=== PATIENT | male | born 1940 | race Caucasian/White ===

== ENCOUNTER 2024-11-19 22:15 | Inpatient (IN) | payer MEDICARE, SELFPAY ==
[2024-11-19 15:30] VITALS: BP 158/73
[2024-11-19] MEDS: TYLENOL 975 MG PO (15:39)
[2024-11-19 16:01] LABS: % Basophils 0.2 % (0-2); % Eosinophils 0.1 % (0-6); % Immature Granulocytes 1.7 % (0-0.5); % Lymphocytes 10.5 % (20.5-51.1); % Monocytes 8.6 % (1.7-9.3); % Neutrophils 78.9 % (42.2-75.2); Absolute Immature Granulocytes 0.2 10^3/uL (0-0.05); Absolute Lymphocytes 0.9 10^3/uL (1.2-3.4); Absolute Monocytes 0.8 10^3/uL (0.1-0.6); Hematocrit 35.9 % (39.0-52.0); Hemoglobin 11.7 g/dL (13.0-18.0); Mean Corp Hgb Conc. 32.6 g/dL (33.0-37.0); Mean Corpuscular Hgb 27.3 pg (27.0-31.0); Mean Corpuscular Volume 83.9 fL (80.0-94.0); Mean Platelet Volume 9.8 fL (7.4-10.4); Nucleated Red Blood Cells % 0 % (-); Platelet Count 145 10^3/uL (130-400); Red Blood Cell Count 4.28 10^6/uL (4.70-6.10); Red Cell Dist. Width 13.2 % (11.5-14.5); White Blood Cell Count 8.8 10^3/uL (4.8-10.8)
[2024-11-19 16:18] LABS: ALT (SGPT) 19 U/L (0-50); AST (SGOT) 29 U/L (17-59); Albumin 4.2 g/dl (3.5-5.0); Alkaline Phosphatase 131 U/L (38-126); Blood Urea Nitrogen 14 mg/dl (9-20); Calcium 8.9 mg/dl (8.4-10.2); Carbon Dioxide 25 mmol/L (22-30); Chloride 97 mmol/L (98-107); Glucose 184 mg/dl (70-99); Potassium 4.5 mmol/L (3.5-5.1); Sodium 132 mmol/L (135-145); Total Bilirubin 0.2 mg/dl (0.2-1.3); Total Protein 6.8 g/dl (6.3-8.2); eGFR > 60.00
[2024-11-19 16:44] LABS: COVID-19 Antigen Negative (Negative)
[2024-11-19 18:25] VITALS: BP 162/69
--- NOTE | 2024-11-19 18:48 | ED.GENMED ---
History of Present Illness
General
Chief Complaint: Fall
Source: patient and family (Daughter)
Exam Limitations: none
Time Seen by Provider: 11/19/24 18:33
History of Present Illness
History of Present Illness:
This is a 84 year old male that comes in with c/o fall. Daughter states that he has had cold symptoms since Sunday. Today patent was trying to get out of his Recliner and he had a blanket over him. States that he lost his balance and fell. States
that he did not hit his head. Denies any LOC. States that he has a fever with some dizziness. Denies any chills, chest pain, SOB, abd pain, nausea, vomiting, diarrhea, headache, urinary burning.
Past History
Past History
ED Past Medical History: HTN and IDDM (Patient has an insulin pump)
ED Past Surgical History: Other (Bilateral leg bypass)
Social History
Tobacco: Former smoker
Alcohol: None
Personal:
Living: with family
Review of Systems
Review of Systems
All Other Systems: ROS reviewed and negative except as documented in HPI and ROS
Constitutional: Reports fever; Denies chills
EENT: Reports no symptoms
Respiratory: Reports cough; Denies trouble breathing
Cardiac: Reports no symptoms; Denies chest pain
ABD/GI: Denies abdominal pain, nausea, vomiting or diarrhea
: Reports no symptoms; Denies dysuria, frequency or urgency
Musculoskeletal: Reports no symptoms
Skin: Reports no symptoms
Neurological: Reports dizzy; Denies headache
Psychiatric: Reports no symptoms
Phy Exam
General Physical Exam
General Presentation: no apparent distress
General age: appears stated age
General Skin: warm and dry
General Habitus: elderly
General Mental: alert
General Hydration: appears well hydrated
ENT Exam
ENT Exam: TM's normal, pharynx normal and neck supple
Eye Exam
Eye Exam: EOMI
Cardiovascular Exam
Cardiovascular Exam: regular rate/rhythm and normal peripheral pulses
Pulmonary Exam
Pulmonary Exam: no rales, no crackles, no rhonchi and other (Insp and exp wheezing throughout, Cough noted)
Gastrointestinal Exam
Gastrointestinal Exam: normal bowel sounds, non tender, soft, no organomegaly, no pulsatile mass and non distended
Musculoskeletal Exam
Musculoskeletal Exam: full ROM and other (Large right lateral knee lump. Most likely a hematoma)
Skin Exam
Skin Exam: normal color, warm/dry and no petechia
Psychiatric Exam
Psychiatric Exam: normal mood/affect
Course
Orders/Labs/Results
Orders:
Orders
11/19/24 15:34
Electrocardiogram (*1) Urgent
Reason for Study: Other
Other Reason for Exam: Possible Sepsis
11/19/24 15:35
EKG- Treatment ONCE
11/19/24 15:36
CR Knee- Right 4 Or More View* Urgent
Comment:
Reason For Exam: pain
Chest [CR Chest - 2 Views ] Urgent
Comment:
Reason For Exam: cough/fever
11/19/24 15:38
Acetaminophen [Tylenol] 975 mg .ROUTE .STK-MED ONE
11/19/24 15:39
Acetaminophen [Tylenol] 975 mg PO NOW STA
11/19/24 15:52
COVID-19 Antigen Urgent
Source: Nasal Swab
Complete Blood Count/With Diff Urgent
Comprehensive Metabolic Panel Urgent
Influenza A+B Rapid Molecular Urgent
ADITYA Source: Nasal Swab
Specimen Description:
11/19/24 18:47
0.9% Sodium Chloride 500 ml [Nss] 500 ml IV BOLUS
Ipratropium/Albuterol Sulfate [Duoneb] 3 ml INH R NOW ONE
11/19/24 18:[address] Non Medication Order As Directed
Physician Order: after fluids and duo. please walk patient and recheck Oxygen saturation
Above order entered?: Yes
11/19/24 18:56
US Legs, Right [US Periph Venous LOWER Ext RT] Urgent
Comment:
Reason For Exam: Large palpable lump lateral distal knee area.
11/19/24 19:07
Troponin I Urgent
11/19/24 20:23
Dexamethasone Sod Phosphate [Decadron] 20 mg IV NOW STA
11/19/24 21:37
Admit/Transfer Patient As Directed
Co-Sign Provider:
Level of Care: Inpatient admission
Assign to:: Medical/Surgical
Physician / Group: Jose F
Diagnosis: Influenza A, Hypoxemic Respiratory Insufficiency
Reason for Hospitalization: Influenza A, Hypoxemic Respiratory Insufficiency
Expected length of stay greater than two midnights?: Yes
ELOS- Estimated Length of Stay in days: 2
I certify the patient meets the requirements for IP care: Yes
PRN Pain Medication Management As Directed
May give lesser potent ordered pain med per pt: Yes
preference::
Protocol:: Medication orders for pain may be administered in a
manner that supports deferring to patient preference
when the pt is:
- Requesting an ordered lesser potent pain medication.
Least to most potent pain medications are defined
as: acetaminophen < NSAID < tramadol < opioids
(morphine, oxycodone, hydromorphone).
- Requesting a lesser dose of the same medication IF
ORDERED.
- Requesting a less intrusive route of administration
if both routes are prescribed by the provider (PO <
IV).
11/19/24 21:39
Code Status As Directed
Resuscitation Status: Do not resuscitate
Reached after discussion with pt or family/Healthcare POA: Yes
11/19/24 21:40
DNR Bracelet Application ONCE
11/19/24 21:48
Oseltamivir Phosphate [Tamiflu] 75 mg PO NOW STA
11/19/24 22:00
Flush (0.9% Sodium Chloride) [Flush (Nss)] See Dose Instructions IV PER PROTOCOL
11/19/24 22:18
0.9% Sodium Chloride 1000 ml [Nss] 1,000 ml IV 100 mls/hr
Acetaminophen [Tylenol] 650 mg PO Q4HPRN PRN
Albuterol [ProAIR HFA INHALER] 2 puff INH R Q4HPRN PRN
Dextrose 50%-Water [Dextrose 50% Syringe] 12.5 grams IV [id number] PRN
Glucagon [GlucaGen] 1 mg IM PRN PRN
Pravastatin Sodium [Pravachol] 80 mg PO HS
11/19/24 22:18
WOUND/OSTOMY CONSULT Routine
Reason for Consult: RLE Hematoma
Activity As Directed
Activity Level: Ambulate
With Assistance
Bedside Glucose Monitoring As Directed
Frequency: AC&HS
Additional Instructions:: Change to q6h if pt on TPN, tube feeding or not eating
Bladder Scan As Directed
Follow Bladder Retention/Intermittent Cath Algorithm?: Yes
PRN if no void in __ hours: 6
Frequency: Per Retention Algorithm
If Bladder Scan Result >: 400
then:: Straight cath
I/O [Intake/ Output] As Directed
Frequency: Per unit guidelines
Orthostatic Vital Signs As Directed
Orthostatic VS Frequency: BID
Pneumatic Compression Sleeves As Directed
Type: Knee high
Precautions As Directed
Type of Precautions: Droplet
Straight Cath As Directed
Frequency: Per Retention Algorithm
Additional Instructions: straight cath as needed per acute urinary retention algorithm for 24 hrs
Additional Instructions: for bladder scan greater than 400 mL
Vital Signs As Directed
Frequency: Per unit guidelines
Weight As Directed
Frequency: Daily
Oxygen Therapy [O2 Therapy] [RESP] Routine
Titrate/Wean O2 to maintain O2 sat greater than (%): 94
Ot Eval And Treat Routine
PT Consult [Pt Eval And Treat] Routine
Activity Level: Ambulate
With Assistance
DX Deep Vein Thrombosis Video Routine
11/20/24 Breakfast
2000 calorie (17 carb) Diabetic
Basic Metabolic Panel IN AM
Complete Blood Count/No Diff IN AM
Glycohemoglobin (HgbA1c) IN AM
11/20/24 07:30
Insulin Pump [Patient's Own Insulin Pump] See Dose Instructions SC ACHS
11/20/24 08:00
Allopurinol [Zyloprim] 100 mg PO DAILY
Amlodipine [Norvasc] 5 mg PO DAILY
Aspirin Chewable [Low Strength Aspirin] 81 mg PO DAILY
Atenolol [Tenormin] 50 mg PO DAILY
Cilostazol [Pletal] 100 mg PO BID
Guaifenesin [Mucinex] 600 mg PO Q12
Lisinopril [Zestril] 20 mg PO DAILY
Oseltamivir Phosphate [Tamiflu] 75 mg PO BID
Sitagliptin Phosphate [Januvia] 100 mg PO DAILY
11/20/24 22:00
Latanoprost [Xalatan Ophthalmic Solution] See Dose Instructions LEFT EYE HS
Abnormal Lab Results
11/19/24
15:52
RBC 4.28 L 10^6/uL
(4.70-6.10)
Hgb 11.7 L g/dL
(13.0-18.0)
Hct 35.9 L %
(39.0-52.0)
MCHC 32.6 L g/dL
(33.0-37.0)
Abs Immat Gran (auto) 0.2 H 10^3/uL
(0-0.05)
Absolute Neuts (auto) 7.0 H 10^3/uL
(1.4-6.5)
Absolute Lymphs (auto) 0.9 L 10^3/uL
(1.2-3.4)
Absolute Monos (auto) 0.8 H 10^3/uL
(0.1-0.6)
Immature Gran % 1.7 H %
(0-0.5)
Neutrophils % 78.9 H %
(42.2-75.2)
Lymphocytes % 10.5 L %
(20.5-51.1)
Sodium 132 L mmol/L
(135-145)
Chloride 97 L mmol/L
(98-107)
Glucose 184 H mg/dl
(70-99)
Alkaline Phosphatase 131 H U/L
(38-126)
11/19/24 15:52
11/19/24 15:52
H/H slightly low. Sodium slightly low. Hyperglycemia. Alk phos elevation. COVID negative. Influenza A positive,
Vital Signs
Initial and Last Documented VS:
Initial Vital Signs
Temp Pulse Resp BP Pulse Ox
102.1 F H 92 16 158/73 94
11/19/24 15:30 11/19/24 15:30 11/19/24 15:30 11/19/24 15:30 11/19/24 15:30
Last Documented Vital Signs
Temp Pulse Resp BP Pulse Ox
99.7 F 100 20 143/59 94
11/19/24 18:25 11/19/24 20:28 11/19/24 22:13 11/19/24 21:41 11/19/24 22:13
MDM/Problems Addressed
Differential Diagnosis Includes:
accidental fall, Influenza, COVID, PNA
MDM/Problems Addressed:
This is a 84 year old male that comes in with c/o fall. States that he has had cold like symptoms since Sunday. States that he was trying to get out of his recliner and he fell. States that he lost his balance.
Will check labs, chest x-ray. X-ray knee, US large palpable lump on right lower leg. Duo neb and then walk patient to check his Oxygen level .
Back into see patient. Patient continues with wheezing and is hypoxic at 85%. Will place on 02 and admit. Will also give Steroids as blood sugar can be treated. Hospitalist notified.
Chronic conditions affecting care: DM
Acute Exacerbation and/or Progression of Chronic Illness:
NA
*Radiology
Radiology exam reviewed: radiology read reviewed (Chest-No definite acute cardiopulmonary process. Prominent bronchovascular markings, felt related to dimished inspiration and accentuation of chest wall soft tissues. Knee=No radiographically
demonstrable acute fracture. Normal variant bipartite patella. Medial compartment arthritis. ) and other (US- No evidence of right lwoer extremity DVT, Palpable mass corresponds to a nonvascular complex fluid collection, most consistent with a
hematoma. )
*Pulse Oximetry
Patient hypoxic: no
*EKG
Interpreted by ED Provider?: Yes
Heart Rate: 102
Rate: tachycardiac
Rhythm: sinus
[place]: left axis deviation
Interval: normal interval
QRS Pattern: normal QRS
Ischemia: no ischemia
*[employer] Interpretation
Rate: tachycardiac
Heart Rate: 102
Rhythm: sinus tachycardia
*Critical Care Note
Total Time (30-74mins, 75-104mins- exclusive of procedures): Not Applicable
ED Attending Note
-
Portions of this chart may have been created with voice recognition software.� Occasional wrong word or��sound alike� substitutions may have occurred due to the inherent limitations of voice recognition software.
Discharge Plan
Departure
Patient Disposition: Admit
Date of Disposition: 11/19/24
Time of Disposition: 20:25
Admit to: Telemetry
Presentation/result/management discussed w/ accepting MD/DO: Hospitalist
Patient with high blood pressure during this ER visit?: Yes
Condition: Good
Covid-19: Not Applicable
Discharge Problem:
Influenza A, Bilateral wheezing, Hypoxia
Interventions
Interventions:
*Risk Screen - Suicide Last Done: 11/19/24 15:30
*General Assessment Last Done: 11/19/24 21:43
*Neglect/Abuse Screening Last Done: 11/19/24 15:30
ED- Fall Risk Assessment Last Done: 11/19/24 18:26
*ED COVID-19 Vaccine History Last Done: 11/19/24 21:43
ED-Musculoskeletal Assessment Last Done: 11/19/24 18:26
ED- Neurological Assessment Last Done: 11/19/24 18:26
ED-Skin Assessment Last Done: 11/19/24 18:26
[2024-11-19] MEDS: NSS 500 IV (18:57)
[2024-11-19] MEDS: DUONEB 3 ML INH (18:57)
[2024-11-19 19:38] LABS: Troponin I 0.019 ng/ml
[2024-11-19 20:28] VITALS: BP 159/59
--- NOTE | 2024-11-19 20:42 | PHANOTE ---
[email or web address](11/19/24)-Spoke with daughter Lilo, ambulance crew took her medication list, will call her when she gets home to confirm medication list from [facility] so she can reference the home medication list.
[2024-11-19] MEDS: DECADRON 20 MG IV (21:15)
[2024-11-19 21:41] VITALS: BP 143/59
--- NOTE | 2024-11-19 21:41 | HPS.HSE ---
Family Physician
-
Family Physician: Maribell Milian
Chief Complaint
-
Fall, Weakness
History of Present Illness
Patient is an 84y M with PMH significant for ASCVD / PAD, HTN and DM-II who presents to ED complaining of fall at home. Patient states that he developed 'cold symptoms' on Sunday of this week including runny nose, cough productive of green
mucus, weakness and fatigue. No fevers or chills. No GI or complaints. No known sick contacts. Patient did receive his influenza vaccine this season. This afternoon, patient stood from his chair and his legs felt weak. He fell backwards,
landing on a nearby coffee table. He denies striking his head, loss of consciousness, etc.
He suffered small skin tear to the L forearm and a lump / bruise on the R lower leg. He otherwise denies any current complaints or other injuries. Patient was transported to the ED for evaluation and was noted to be hypoxemic at 85% on room air.
He tested positive for influenza A.
Medical History
Past Medical History
Past Medical History: Reports Other
Additional Past Medical History:
ASCVD / PAD
AAA
Hypertension
DM-II
Gout
Nephrolithiasis
Colon Cancer
Obesity
Past Surgical History: Reports Other
Additional Past Surgical History:
Left Ax-Fem Bypass
Fem-Fem Bypass
Aortoiliac Repair / Endovascular Stent
Hemicolectomy
Right Inguinal Herniorrhaphy
Cataracts
Social History
Tobacco: Former Smoker (Quit 40 years ago. Approx 30 pack years total use.)
Alcohol: Occasional (Very rare.)
Drug: None
Living: With Family
Family History
Family History: Not pertinent
Allergies / Home Medications
Allergies reflects when Allergies were last updated in [employer].
Home Medications with original date entered in [employer]
Allergy/Medication List:
Allergies
Allergy/AdvReac Type Severity Reaction Status Date / Time
No Known Allergies Allergy Unverified 11/19/24 15:29
Home Medications
Patient's Own Insulin Pump 0 sliding scale dose SC AC 11/19/24
allopurinol 100 mg tablet 100 mg PO DAILY 11/19/24
alogliptin 25 mg tablet 25 mg PO DAILY 11/19/24
amlodipine 5 mg tablet 5 mg PO DAILY 11/19/24
aspirin 81 mg chewable tablet 81 mg PO DAILY 11/19/24
atenolol 50 mg tablet 50 mg PO DAILY 11/19/24
cilostazol 100 mg tablet 100 mg PO BID 11/19/24
latanoprost (PF) 0.005 % eye drops in a dropperette 1 drp LEFT EYE HS 11/19/24
lisinopril 20 mg tablet 20 mg PO DAILY 11/19/24
metformin 1,000 mg tablet 1,000 mg PO BID 11/19/24
pravastatin 40 mg tablet 80 mg PO HS 11/19/24
therapeutic multivitamin 1 tab PO DAILY 11/19/24
Review of Systems
-
History Source: Patient
A 12 point ROS was completed and negative except as noted: Yes
Constitutional: Reports Fatigue; Denies Fever or Chills
EENT: Reports Runny Nose; Denies Sore Throat
Respiratory: Reports Cough; Denies Hemoptysis or Trouble Breathing
Cardiac: Denies Chest Pain, Palpitations or Syncope
Abdomen/GI: Denies Abdominal Pain, Nausea, Vomiting or Diarrhea
: Denies Dysuria, Frequency or Flank Pain
Musculoskeletal: Denies Joint Pain or Edema
Neurological: Reports Weakness; Denies Dizzy or Headache
Psych: Denies Depression or Anxiety
Physical Exam
Vital Signs
Vital Signs
Temp Pulse Resp BP Pulse Ox
99.7 F 100 19 159/59 96
11/19/24 18:25 11/19/24 20:28 11/19/24 20:28 11/19/24 20:28 11/19/24 20:28
Physical Exam
General: Other (84y M in no acute distress.)
HEENT: Moist mucous membranes and PERRLA
Respiratory: Other (Few scattered coarse breath sounds. Faint expiratory wheezing.)
Cardiac: S1/S2 and Regular Rhythm; No Murmur
GI: Soft, Non Tender, Non Distended and Normal Bowel Sounds
Musculoskeletal: No Clubbing, No Cyanosis, No Edema and Other (Hematoma R lateral knee / proximal lower leg with surrounding ecchymosis. No skin breakdown. Small skin tear L forearm with dressing in place.)
Neuro: AO x 3
Laboratory Results
-
11/19/24 15:52
11/19/24 15:52
Laboratory Results
Total Bilirubin 0.2 mg/dl (0.2-1.3) 11/19/24 15:52
AST 29 U/L (17-59) 11/19/24 15:52
ALT 19 U/L (0-50) 11/19/24 15:52
Alkaline Phosphatase 131 U/L (38-126) H 11/19/24 15:52
Troponin I 0.019 ng/ml 11/19/24 19:07
Impression/Plan
-
A/P: Patient is an 84y M with PMH significant for ASCVD, HTN and DM-II who presents to ED for evaluation after fall at home. Recent cold / flu symptoms.
Influenza A
Acute Hypoxemic Respiratory Insufficiency secondary to the above
- Admit for further evaluation and treatment.
- Symptom onset 3 days ago.
- Begin Tamiflu therapy.
- Supportive care including O2 supplementation, albuterol MDI, etc.
- Follow proper precautions.
- Monitor for improvement in symptoms.
Fall at Home
Generalized Weakness
- Likely secondary to acute illness as noted above.
- PT / OT evaluations.
RLE Hematoma
LUE Skin Tear
- Continue local care. US done in the ED confirms hematoma of the R LE.
- Not on any anticoagulants.
- Follow for gradual improvement.
ASCVD
- s/p multiple bypass procedures, AAA repair, etc.
- No prior coronary disease, stroke, etc.
- Continue current med regimen including ASA, cilostazol, etc.
Benign Hypertension
- Stable. Continue home regimen with holding parameters.
DM-II
- Stable. Continue home insulin pump.
- Follow glucose and cover with SSI from own pump as per usual.
- Update A1C.
DVT Prophylaxis: SCDs
Code Status: DNR
[2024-11-19 22:00] VITALS: BP 119/58
[2024-11-19] MEDS: TAMIFLU 75 MG PO (22:10)
[2024-11-19 22:23] VITALS: BMI 33.6
[2024-11-19] MEDS: PRAVACHOL 80 MG PO (23:45)
[2024-11-20] VITALS (10 sets, daily range): BP systolic 92–142; BP diastolic 61–79; PULSE 73–79; O2SAT 94; BMI 32.4; BMI 33.0
[2024-11-20] MEDS: NSS 1000 IV ×3 (02:00→23:57)
[2024-11-20 05:33] LABS: Hematocrit 38.4 % (39.0-52.0); Hemoglobin 12.2 g/dL (13.0-18.0); Mean Corp Hgb Conc. 31.8 g/dL (33.0-37.0); Mean Corpuscular Hgb 27.2 pg (27.0-31.0); Mean Corpuscular Volume 85.5 fL (80.0-94.0); Mean Platelet Volume 9.7 fL (7.4-10.4); Platelet Count 148 10^3/uL (130-400); Red Blood Cell Count 4.49 10^6/uL (4.70-6.10); Red Cell Dist. Width 13.3 % (11.5-14.5); White Blood Cell Count 6.5 10^3/uL (4.8-10.8)
[2024-11-20 05:58] LABS: Blood Urea Nitrogen 17 mg/dl (9-20); Calcium 8.7 mg/dl (8.4-10.2); Carbon Dioxide 27 mmol/L (22-30); Chloride 101 mmol/L (98-107); Estimated Creatinine Clearance 57 ml/min; Glucose 170 mg/dl (70-99); Potassium 4.7 mmol/L (3.5-5.1); Sodium 137 mmol/L (135-145); eGFR > 60.00
[2024-11-20] MEDS: MUCINEX 600 MG PO ×2 (08:12→20:23)
[2024-11-20] MEDS: ZESTRIL 20 MG PO (08:12)
[2024-11-20] MEDS: LOW STRENGTH ASPIRIN 81 MG PO (08:12)
[2024-11-20] MEDS: TAMIFLU 75 MG PO ×2 (08:12→20:23)
[2024-11-20] MEDS: ZYLOPRIM 100 MG PO (08:13)
[2024-11-20] MEDS: TENORMIN 50 MG PO (08:13)
[2024-11-20] MEDS: NORVASC 5 MG PO (08:13)
[2024-11-20 08:22] LABS: Glucose - Point of Care 182 mg/dl (70-99)
[2024-11-20 08:51] LABS: Glycohemoglobin (HgbA1c) 7.5 % (4.0-5.6)
[2024-11-20] MEDS: PATIENT'S OWN INSULIN PUMP 5 UNITS SC (10:42)
[2024-11-20] MEDS: PLETAL 100 MG PO ×2 (10:43→20:22)
[2024-11-20] MEDS: JANUVIA 100 MG PO (10:43)
--- NOTE | 2024-11-20 12:48 | W.PN.HOSP.TC ---
Today's Communication/Plan
-
Monitor vitals
See plan
Wean oxygen as tolerated
Continue with Tamiflu
PT/OT
Assessment / Plan
Assessment / Plan
General: in no acute distress
HEENT: Moist mucous membranes and PERRLA
Respiratory: few rhonchi
Cardiac: S1/S2 and Regular Rhythm; No Murmur
GI: Soft, Non Tender, Non Distended and Normal Bowel Sounds
Musculoskeletal: No Clubbing, No Cyanosis, No Edema and Other (Hematoma R lateral knee / proximal lower leg with surrounding ecchymosis. Small skin tear L forearm with dressing in place.)
Neuro: AO x 3
Influenza A
Acute Hypoxemic Respiratory Insufficiency secondary to the above
- Admit for further evaluation and treatment.
Continue with Tamiflu
- Supportive care including O2 supplementation, albuterol MDI, etc.
- Follow proper precautions.
- Monitor for improvement in symptoms.
Fall at Home
Generalized Weakness
- Likely secondary to acute illness as noted above.
- PT / OT evaluations.
RLE Hematoma
LUE Skin Tear
- Continue local care. US done in the ED confirms hematoma of the R LE.
- Not on any anticoagulants.
- Follow for gradual improvement.
ASCVD
- s/p multiple bypass procedures, AAA repair, etc.
- No prior coronary disease, stroke, etc.
- Continue current med regimen including ASA, cilostazol, etc.
Benign Hypertension
- Stable. Continue home regimen with holding parameters.
DM-II
- Stable. Continue home insulin pump.
- Follow glucose and cover with SSI from own pump as per usual.
- Update A1C 7.5
DVT Prophylaxis: SCDs
Code Status: DNR
Anticipated Discharge: 24 - 48 hours
Subjective/Interval History
-
Date of Service: November 20, 2024
denies pain
Objective Data
-
Labs:
Laboratory Results
11/20/24
05:03
WBC 6.5
Hgb 12.2 L
Hct 38.4 L
Plt Count 148
Sodium 137
Potassium 4.7
Chloride 101
Carbon Dioxide 27
BUN 17
Creatinine 1.0
Glucose 170 H
Calcium 8.7
Vital Signs:
Vital Signs
Temp Pulse Resp BP Pulse Ox
98.7 F 100 24 125/61 98
11/20/24 08:11 11/19/24 20:28 11/20/24 08:11 11/20/24 10:00 11/20/24 10:00
I&O
11/19/24 11/20/24 11/21/24
06:59 06:59 06:59
Output Total 1000 / 1000 200 / 200
Balance -1000 / -1000 -200 / -200
[2024-11-20 13:06] LABS: Glucose - Point of Care 168 mg/dl (70-99)
[2024-11-20] MEDS: PATIENT'S OWN INSULIN PUMP 2 UNITS SC (13:20)
--- NOTE | 2024-11-20 13:47 | WOUNDNOTE ---
RIGHT LOWER LEG HEMATOMA
--- NOTE | 2024-11-20 13:48 | WOUNDNOTE ---
RIGHT LOWER POSTERIOR LEG HEMATOMA
--- NOTE | 2024-11-20 13:48 | WOUNDNOTE ---
WOC RN NOTE: Received consult for right LE hematoma. The hematoma is a result of recent fall, US negative for DVT. The hematoma appears deep and is not on surface of skin. Patient denies pain/discomfort. Sacrum intact. Will sign off.
--- NOTE | 2024-11-20 15:30 | PTCARENOTE ---
Patient received. AAOx3, denies any pain, SOB, or an discomfort. Pt was oriented to unit. Con of care ongoing.
[2024-11-20 16:40] LABS: Glucose - Point of Care 151 mg/dl (70-99)
[2024-11-20] MEDS: PATIENT'S OWN INSULIN PUMP SC ×2 (17:50→21:19)
[2024-11-20] MEDS: PRAVACHOL 80 MG PO (20:23)
[2024-11-20] MEDS: XALATAN OPHTHALMIC SOLUTION 1 DROP LEFT EYE (20:24)
[2024-11-21 06:26] LABS: Glucose - Point of Care 209 mg/dl (70-99)
[2024-11-21 07:45] VITALS: BP 140/78
[2024-11-21 08:03] LABS: Glucose - Point of Care 122 mg/dl (70-99)
[2024-11-21 08:42] LABS: % Basophils 0.1 % (0-2); % Eosinophils 0.1 % (0-6); % Immature Granulocytes 0.2 % (0-0.5); % Lymphocytes 20.1 % (20.5-51.1); % Monocytes 7.4 % (1.7-9.3); % Neutrophils 72.1 % (42.2-75.2); Absolute Lymphocytes 2.1 10^3/uL (1.2-3.4); Absolute Monocytes 0.8 10^3/uL (0.1-0.6); Absolute Neutrophils 7.5 10^3/uL (1.4-6.5); Hematocrit 39.2 % (39.0-52.0); Hemoglobin 12.6 g/dL (13.0-18.0); Mean Corp Hgb Conc. 32.1 g/dL (33.0-37.0); Mean Corpuscular Hgb 27.1 pg (27.0-31.0); Mean Corpuscular Volume 84.3 fL (80.0-94.0); Mean Platelet Volume 9.8 fL (7.4-10.4); Nucleated Red Blood Cells % 0 % (-); Platelet Count 192 10^3/uL (130-400); Red Blood Cell Count 4.65 10^6/uL (4.70-6.10); Red Cell Dist. Width 13.2 % (11.5-14.5); White Blood Cell Count 10.4 10^3/uL (4.8-10.8)
[2024-11-21] MEDS: TENORMIN 50 MG PO (09:07)
[2024-11-21] MEDS: NORVASC 5 MG PO (09:08)
[2024-11-21] MEDS: JANUVIA 100 MG PO (09:08)
[2024-11-21] MEDS: ZYLOPRIM 100 MG PO (09:08)
[2024-11-21] MEDS: MUCINEX 600 MG PO ×2 (09:08→20:47)
[2024-11-21] MEDS: PLETAL 100 MG PO ×2 (09:08→20:47)
[2024-11-21] MEDS: TAMIFLU 75 MG PO ×2 (09:08→20:48)
[2024-11-21] MEDS: LOW STRENGTH ASPIRIN 81 MG PO (09:08)
[2024-11-21] MEDS: ZESTRIL 20 MG PO (09:08)
[2024-11-21] MEDS: PATIENT'S OWN INSULIN PUMP 9 UNITS SC (09:09)
[2024-11-21 09:13] LABS: Blood Urea Nitrogen 24 mg/dl (9-20); Calcium 8.8 mg/dl (8.4-10.2); Carbon Dioxide 26 mmol/L (22-30); Chloride 104 mmol/L (98-107); Estimated Creatinine Clearance 57 ml/min; Glucose 123 mg/dl (70-99); Potassium 4.2 mmol/L (3.5-5.1); Sodium 140 mmol/L (135-145); eGFR > 60.00
[2024-11-21] MEDS: NSS 1000 IV (10:30)
--- NOTE | 2024-11-21 11:20 | W.PN.HOSP.TC ---
Addendum entered and electronically signed by David Bentley MD 11/21/24 13:15:
Patient was hypoglycemic earlier today. Took 9 units through his insulin pump. Asked diabetes nurse practitioner to see. Need better diabetes education. Hold off on discharge given hypoglycemia. Called daughter, unreachable.
Original Note:
Today's Communication/Plan
-
monitor vitals
see plan
albuterol prn
cw tamiflu
Check ambulatory pulse ox, if stable then likely can be discharged today
Updated daughter over the phone
Assessment / Plan
Assessment / Plan
General: in no acute distress
HEENT: Moist mucous membranes and PERRLA
Respiratory: few rhonchi
Cardiac: S1/S2 and Regular Rhythm; No Murmur
GI: Soft, Non Tender, Non Distended and Normal Bowel Sounds
Musculoskeletal: No Clubbing, No Cyanosis, No Edema and Other (Hematoma R lateral knee / proximal lower leg with surrounding ecchymosis. Small skin tear L forearm with dressing in place.)
Neuro: AO x 3
Influenza A
Acute Hypoxemic Respiratory Insufficiency secondary to the above
Continue with Tamiflu
- Supportive care including O2 supplementation, albuterol MDI, etc.
- Follow proper precautions.
- Monitor for improvement in symptoms.
Check ambulatory pulse ox, if remains stable on room air then likely can be discharged
Fall at Home
Generalized Weakness
- Likely secondary to acute illness as noted above.
- PT / OT evaluations.
RLE Hematoma
LUE Skin Tear
- Continue local care. US done in the ED confirms hematoma of the R LE.
- Not on any anticoagulants.
- Follow for gradual improvement.
ASCVD
- s/p multiple bypass procedures, AAA repair, etc.
- No prior coronary disease, stroke, etc.
- Continue current med regimen including ASA, cilostazol, etc.
Benign Hypertension
- Stable. Continue home regimen with holding parameters.
DM-II
- Stable. Continue home insulin pump.
- Follow glucose and cover with SSI from own pump as per usual.
- Update A1C 7.5
DVT Prophylaxis: SCDs
Code Status: DNR
Anticipated Discharge: Today
Subjective/Interval History
-
Date of Service: November 21, 2024
denies pain
Objective Data
-
Labs:
Laboratory Results
11/21/24
08:21
WBC 10.4
Hgb 12.6 L
Hct 39.2
Plt Count 192 D
Sodium 140
Potassium 4.2
Chloride 104
Carbon Dioxide 26
BUN 24 H
Creatinine 1.0
Glucose 123 H
Calcium 8.8
Vital Signs:
Vital Signs
Temp Pulse Resp BP Pulse Ox
97.7 F 65 18 140/78 92
11/21/24 07:45 11/21/24 09:07 11/21/24 07:45 11/21/24 09:07 11/21/24 07:45
I&O
11/20/24 11/21/24 11/22/24
06:59 06:59 06:59
Intake Total 720 / 720 480 / 480
Output Total 1000 / 1000 2175 / 2175 275 / 275
Balance -1000 / -1000 -1455 / -1455 205 / 205
[2024-11-21 11:56] LABS: Glucose - Point of Care 56 mg/dl (70-99)
[2024-11-21 12:14] LABS: Glucose - Point of Care 62 mg/dl (70-99)
[2024-11-21 12:28] LABS: Glucose - Point of Care 74 mg/dl (70-99)
[2024-11-21] MEDS: PATIENT'S OWN INSULIN PUMP SC ×2 (13:37→17:34)
[2024-11-21 15:00] LABS: Glucose - Point of Care 161 mg/dl (70-99)
--- NOTE | 2024-11-21 15:02 | CM ---
Pt seen bedside w/ daughterLilo. Initial assessment completed. Admitted for fall and weakness.
Pt reports that he lives w/ daughter in a split level home- 4 steps to enter the home
Pt uses cane to ambulate. Has grab bars in the home for support
No SNF/VN/PT hx. Pt is active at a senior center
Address, point of contact and insurance verified
PCP: Dr. Milian
Pharmacy: [facility]
PT/OT evaluated, currently recommending HH at d/c. Discussed w/ pt and daughter. Per daughter, pt is active and doesn't believe pt will need this at d/c. Pt and daughter agreeable to revisit HH option closer to d/c.
Plan: Home, poss VN if pt agreeable at d/c.
[2024-11-21 15:06] VITALS: BP 167/78
--- NOTE | 2024-11-21 17:00 | PN.DE.MGMTRT ---
Addendum entered and electronically signed by Allison Roca NP 11/21/24 17:27:
Patient states he has only been on his insulin pump 1 week and states he felt like he could not absorb everything he needed to during the pump training.
Original Note:
Insulin Management
- -
11/21/2024
Patient admitted 11/19 with c/o fall at home and weakness - Influenza A. PMH diabetes, PAD, ASCVD, HTN. Prior to admission was using a Medtronic insulin pump with Vinayak infusion set Novolog and Guardian sensor. A1C 7.5%, cr 1, eGFR > 60.
Patient is awake alert and oriented able to discuss diabetes care. States he has had diabetes ~ 20 years, sees Jose J DIXON @ [facility].
Talked with patient regarding use of his pump, he had somehow turned the Bolus Wizard calculator off in the pump. Demonstrated how the bolus wizard works and explained to patient that he must use the bolus wizard for all insulin administered. He
verbalized understanding and was able to demonstrate using the bolus wizard for dinner.
Current pump settings are basal rate of 1.05, which i believe is too much insulin for this patient. Glucose 56 @11:54, treated then up to 62. Pre dinner his glucose is 99. Will reduce basal rate to .9, until he follows up with Jose J next week.
I:CHO ratio is 1:9
Sensitivity 1: 35
active insulin 2 hour.
Diabetes History
- -
Type of Diabetes: 2 requiring insulin
Pre-Admission Diabetes Regimen
11/21/24
08:21
Creatinine 1.0
Lab Results
Hemoglobin A1c 7.5 % (4.0-5.6) H 11/20/24 05:03
Insulin Pump Settings
IP Diabetes Regimen
11/20/24 11/21/24 11/21/24
21:11 08:02 08:21
Glucose 123 H
POC Glucose 209 H 122 H
11/21/24 11/21/24 11/21/24
11:54 12:12 12:27
Glucose
POC Glucose 56 L 62 L 74
11/21/24
14:59
Glucose
POC Glucose 161 H
Meal type: Lunch
Meal type: Breakfast
Amount consumed: 100%
Amount consumed: 100%
Patient Education
[2024-11-21 17:05] LABS: Glucose - Point of Care 99 mg/dl (70-99)
[2024-11-21] MEDS: PT'S OWN INSULIN PUMP - NovoLOG SC ×2 (17:33→22:37)
[2024-11-21] MEDS: PRAVACHOL 80 MG PO (21:00)
[2024-11-21 22:25] LABS: Glucose - Point of Care 99 mg/dl (70-99)
[2024-11-21] MEDS: XALATAN OPHTHALMIC SOLUTION 1 DROP LEFT EYE (22:38)
[2024-11-21 23:40] VITALS: BP 115/58
[2024-11-22 03:46] LABS: Glucose - Point of Care 87 mg/dl (70-99)
[2024-11-22 04:10] VITALS: BP 133/68; BP 136/65; BP 142/65; PULSE 64; PULSE 65
[2024-11-22 06:12] LABS: % Basophils 0.2 % (0-2); % Eosinophils 0.8 % (0-6); % Immature Granulocytes 0.3 % (0-0.5); % Lymphocytes 29.6 % (20.5-51.1); % Monocytes 9.3 % (1.7-9.3); % Neutrophils 59.8 % (42.2-75.2); Absolute Eosinophils 0.1 10^3/uL (0-0.7); Absolute Lymphocytes 1.9 10^3/uL (1.2-3.4); Absolute Monocytes 0.6 10^3/uL (0.1-0.6); Absolute Neutrophils 3.9 10^3/uL (1.4-6.5); Hematocrit 35.7 % (39.0-52.0); Hemoglobin 11.3 g/dL (13.0-18.0); Mean Corp Hgb Conc. 31.7 g/dL (33.0-37.0); Mean Corpuscular Volume 85.4 fL (80.0-94.0); Mean Platelet Volume 9.8 fL (7.4-10.4); Nucleated Red Blood Cells % 0 % (-); Platelet Count 167 10^3/uL (130-400); Red Blood Cell Count 4.18 10^6/uL (4.70-6.10); Red Cell Dist. Width 13.1 % (11.5-14.5); White Blood Cell Count 6.6 10^3/uL (4.8-10.8)
[2024-11-22 06:45] LABS: Blood Urea Nitrogen 21 mg/dl (9-20); Calcium 8.5 mg/dl (8.4-10.2); Carbon Dioxide 28 mmol/L (22-30); Chloride 104 mmol/L (98-107); Estimated Creatinine Clearance 57 ml/min; Glucose 99 mg/dl (70-99); Potassium 4.1 mmol/L (3.5-5.1); Sodium 139 mmol/L (135-145); eGFR > 60.00
[2024-11-22 07:45] VITALS: BP 159/66
[2024-11-22 08:10] LABS: Glucose - Point of Care 94 mg/dl (70-99)
[2024-11-22] MEDS: TENORMIN 50 MG PO (08:37)
[2024-11-22] MEDS: PLETAL 100 MG PO (08:38)
[2024-11-22] MEDS: ZESTRIL 20 MG PO (08:38)
[2024-11-22] MEDS: ZYLOPRIM 100 MG PO (08:38)
[2024-11-22] MEDS: MUCINEX 600 MG PO (08:38)
[2024-11-22] MEDS: LOW STRENGTH ASPIRIN 81 MG PO (08:38)
[2024-11-22] MEDS: NORVASC 5 MG PO (08:39)
[2024-11-22] MEDS: JANUVIA 100 MG PO (08:39)
[2024-11-22] MEDS: TAMIFLU 75 MG PO (08:39)
[2024-11-22] MEDS: PT'S OWN INSULIN PUMP - NovoLOG 7.1 UNIT SC (08:40)
--- NOTE | 2024-11-22 10:58 | W.PN.HOSP.TC ---
Today's Communication/Plan
-
Monitor vital signs see plan
Insulin pump adjusted
Patient to follow-up with endocrinology next week outpatient
Continue Tamiflu
Discharge today
Time of discharge 38 minutes
Assessment / Plan
Assessment / Plan
General: in no acute distress
HEENT: Moist mucous membranes and PERRLA
Respiratory: few rhonchi
Cardiac: S1/S2 and Regular Rhythm; No Murmur
GI: Soft, Non Tender, Non Distended and Normal Bowel Sounds
Musculoskeletal: No Clubbing, No Cyanosis, No Edema and Other (Hematoma R lateral knee / proximal lower leg with surrounding ecchymosis. Small skin tear L forearm with dressing in place.)
Neuro: AO x 3
Influenza A
Acute Hypoxemic Respiratory Insufficiency secondary to the above
Continue with Tamiflu
- Supportive care including O2 supplementation, albuterol MDI, etc.
- Follow proper precautions.
- Monitor for improvement in symptoms.
Now on room air
Fall at Home
Generalized Weakness
- Likely secondary to acute illness as noted above.
- PT / OT evaluations rec home health
RLE Hematoma
LUE Skin Tear
- Continue local care. US done in the ED confirms hematoma of the R LE.
- Not on any anticoagulants.
- Follow for gradual improvement.
ASCVD
- s/p multiple bypass procedures, AAA repair, etc.
- No prior coronary disease, stroke, etc.
- Continue current med regimen including ASA, cilostazol, etc.
Benign Hypertension
- Stable. Continue home regimen with holding parameters.
DM-II
- hypoglycemia 11/21. Diabetes [facility] [facility] following. Adjusted home insulin pump. Patient will follow-up with endocrinology next week outpatient.
- Follow glucose and cover with SSI from own pump as per usual.
- Update A1C 7.5
DVT Prophylaxis: SCDs
Code Status: DNR
Anticipated Discharge: Today
Subjective/Interval History
-
Date of Service: November 22, 2024
Denies pain, dizziness
Objective Data
-
Labs:
Laboratory Results
11/22/24
06:03
WBC 6.6
Hgb 11.3 L
Hct 35.7 L
Plt Count 167
Sodium 139
Potassium 4.1
Chloride 104
Carbon Dioxide 28
BUN 21 H
Creatinine 1.0
Glucose 99
Calcium 8.5
Vital Signs:
Vital Signs
Temp Pulse Resp BP Pulse Ox
98.2 F 63 20 159/66 90
11/22/24 07:45 11/22/24 08:37 11/22/24 07:45 11/22/24 08:37 11/22/24 07:45
I&O
11/21/24 11/22/24 11/23/24
06:59 06:59 06:59
Intake Total 720 / 720 1380 / 1380 960 / 960
Output Total 2175 / 2175 600 / 600 1075 / 1075
Balance -1455 / -1455 780 / 780 -115 / -115
--- NOTE | 2024-11-22 11:07 | W.DCSUMMARY ---
Discharge Summary
Discharge Data
Date of Admission: 11/19/24
Date of Discharge: 11/22/24
-
Pending Results: No
Hospital Course
84-year-old male with past medical history of hypertension, diabetes mellitus came to the hospital with acute hypoxemic respiratory insufficiency secondary to influenza A infection. Patient was treated with Tamiflu which improved his symptoms. On
discharge he still had some Tamiflu left which was sent to his pharmacy. On admission he also had right lower extremity hematoma which continue to improve over time. He was also evaluated by physical therapy who recommended home health. While he
was hospitalized he also had hypoglycemia. He was seen by diabetes nurse practitioner and his insulin pump was adjusted. He was instructed to follow-up soon with endocrinology outpatient. Over time his oxygenation continued to improve and he was
able to be weaned off oxygen. Since his symptoms started to improve, he was then discharged home with instructions to follow-up with all his physicians outpatient.
Discharge Plan
-
Patient Disposition: Home (Routine Discharge)
Discharge Diagnosis/Procedures: Acute hypoxemic respiratory insufficiency secondary to influenza A
Ambulatory dysfunction
Right lower extremity hematoma
Hypoglycemia
Diet: Diabetic, Carb Controlled
Activity: As tolerated
Driving Restrictions: As prior to admission
Bathing Restrictions: None
Activity Restrictions/Additional Instructions:
Follow-up with endocrinology outpatient
Referrals:
Maribell Milian DO [Family Provider] - in less than 1 week
Prescriptions:
New
albuterol sulfate 90 mcg/actuation Hfa Aerosol Inhaler
2 puff inhalation R Q4HPRN PRN (Reason: SOB) Qty: 6.7 0RF
guaifenesin 600 mg Tablet Extended Release 12hr
600 mg PO Q12 Qty: 14 0RF
oseltamivir 75 mg Capsule
75 mg PO BID 3 Days Qty: 6 0RF
Continued
cilostazol 100 mg Tablet
100 mg PO BID
pravastatin 40 mg Tablet
80 mg PO HS
lisinopril 20 mg Tablet
20 mg PO DAILY
therapeutic multivitamin Tablet
1 tab PO DAILY
amlodipine 5 mg Tablet
5 mg PO DAILY
allopurinol 100 mg Tablet
100 mg PO DAILY
metformin 1,000 mg Tablet
1,000 mg PO BID
aspirin 81 mg Tablet,Chewable
81 mg PO DAILY
atenolol 50 mg Tablet
50 mg PO DAILY
alogliptin 25 mg Tablet
25 mg PO DAILY
latanoprost (PF) 0.005 % Dropperette
1 drp LEFT EYE HS
Patient's Own Insulin Pump
0 sliding scale dose SC AC
Patient Comments:
11/19/24: Uses Novolog
Discharge Orders:
Discharge Patient (As Directed); Ordered 11/22/24
Ordered By: David Bentley
Discharge Date and Time
Discharge Date/Time: 11/22/24 11:45
Print Language: CHILEAN
[2024-11-22 11:20] VITALS: BP 142/66
[2024-11-22] MEDS: PT'S OWN INSULIN PUMP - NovoLOG SC (11:31)
--- NOTE | 2024-11-22 12:56 | CM ---
Addendum entered by Cassidy Richter RN 11/22/24 15:11:
Daughter called back she said pt is home .They declined VN and agreed with DC and aware of IMM.
Original Note:
MD entered order for discharge.
Gale drove pt home.
LM with pt an Gale offered VN .No call back
PLAN Home no needs
== END 2024-11-22 11:45 | disposition home or self-care (01) | DRG 195 ==
LOC: 4 EAST ACU 22:15
PROVIDERS: Clinical Nurse Specialist Family Health; Emergency Medicine; ADMITTING PHYSICIAN Hospitalist; ATTENDING PHYSICIAN Internal Medicine; EMERGENCY PHYSICIAN Emergency Medicine; FAMILY PHYSICIAN Family Medicine
DX: J10.1 Influenza due to other identified influenza virus with other respiratory manifestations (principal); E11.649 Type 2 diabetes mellitus with hypoglycemia without coma; I10 Essential (primary) hypertension; Z66 Do not resuscitate; I25.10 Atherosclerotic heart disease of native coronary artery without angina pectoris; I71.40 Abdominal aortic aneurysm, without rupture, unspecified; M10.9 Gout, unspecified; R06.89 Other abnormalities of breathing; R09.02 Hypoxemia; E66.9 Obesity, unspecified; S80.11XA Contusion of right lower leg, initial encounter; S51.812A Laceration without foreign body of left forearm, initial encounter; W01.0XXA Fall on same level from slipping, tripping and stumbling without subsequent striking against object, initial encounter; Z96.41 Presence of insulin pump (external) (internal); Z87.891 Personal history of nicotine dependence; Z79.899 Other long term (current) drug therapy; Z79.82 Long term (current) use of aspirin; Z79.84 Long term (current) use of oral hypoglycemic drugs; Z79.4 Long term (current) use of insulin; Z68.33 Body mass index [BMI] 33.0-33.9, adult; Z20.822 Contact with and (suspected) exposure to COVID-19
CPT/HCPCS: 71046; 73564; 80048; 80053; 82962; 83036; 84484; 85025; 85027; 87502; 87811; 93005; 93971; 94640; 96361; 96374; 97162; 99285